=== PATIENT | male | born 1945 | race Hispanic/Latino ===

== ENCOUNTER 2019-01-08 08:20 | Day surgery (SDC) | payer OTHER ==
[2019-01-06 15:54] VITALS: BP 128/81
[2019-01-06 15:58] LABS: BASOPHILS % (AUTO) 0.4 % (0.0-5.0); EOSINOPHILS % (AUTO) 2.4 % (0.0-8.0); HEMATOCRIT 42.2 % (42-54); LYMPHOCYTES % (AUTO) 17.4 % (21.0-51.0); MEAN CORPUSCULAR HGB CONC 34.6 g/dL (32.0-36.0); MEAN CORPUSCULAR VOLUME 104.2 fL (79-99); MONOCYTES % (AUTO) 9.7 % (3.0-13.0); NEUTROPHILS % (AUTO) 70.1 % (40.0-77.0); NUCLEATED RED BLOOD CELLS 0.1 % (0.0-0.19); PLATELET COUNT (AUTO) 180 K/uL (130-400); RED BLOOD CELL COUNT(AUTO) 4.05 MIL/uL (4.50-6.20); RED CELL DISTRIBUTION WIDTH 13.9 % (11.0-15.5)
[2019-01-06 16:07] LABS: CREATININE 1.1 mg/dL (0.5-1.5)
[2019-01-08] VITALS (13 sets, daily range): BP systolic 120–140; BP diastolic 72–85
[2019-01-08] MEDS: CEFTRIAXONE SODIUM 1 GM IVP SCH ×2 (06:00→11:20)
[~2019-01-08 08:20] MED LIST: AMLO10TA7 PO; ESOM40CA PO; GLUC-148 PO; METO-408 PO; UBID300C PO; VITA1CAP85 PO
[2019-01-08] MEDS ORDERED: LACTATED RINGERS 1000ML 1,000 ML IV ONE (09:57)
[2019-01-08] MEDS ORDERED: PROPOFOL 10 MG/ML 20ML VIAL IV ONE (11:08)
[2019-01-08] MEDS ORDERED: ROCURONIUM 10MG/1ML SYR 10 MG/ML ML ONE (11:08)
[2019-01-08] MEDS ORDERED: LIDOCAINE PF 2% 5ML ABBOJECT ONE (11:08)
[2019-01-08] MEDS ORDERED: FENTANYL CITRATE PF 50 MCG/1 ML 2ML VIAL ONE (11:09)
[2019-01-08] MEDS ORDERED: ONDANSETRON HCL 4 MG/2 ML VIAL ONE (11:13)
[2019-01-08] MEDS ORDERED: DEXAMETHASONE SOD PHOSPHATE 10MG/ML 1ML VIAL ONE (11:13)
[2019-01-08] MEDS ORDERED: EPHEDRINE SULFATE 50 MG/ML AMPULE ONE (11:26)
[2019-01-08] MEDS ORDERED: NEOSTIGMINE 5MG/5ML SYR IV ONE (11:48)
[2019-01-08] MEDS ORDERED: GLYCOPYRROLATE 1 MG/5 ML SYRINGE ONE (11:48)
--- NOTE | 2019-01-08 13:05 | NUR ---
RECEIVE PT RECEIVED FROM PACU VIA STRETCHER AWAKE ALERT ORIENTED X3. STABLE. NO COMPLAINTS MADE. GUO CATH 16 FR DRAINING CLEAR PINK TINGED URINE, ABOUT 1000 ML, SECURED WITH LEG STRAP. CALL BILLINGS WITHIN REACH, WILL CALL FOR TO COME IN TO ROOM. WILL CONTINUE TO MONITOR PT.
[2019-01-08] MEDS ORDERED: PHENAZOPYRIDINE HCL 200 MG TABLET ONE (13:17)
--- NOTE | 2019-01-08 13:55 | NUR ---
DISCHARGE PT DISCHARGED VIA WHEELCHAIR WITH . PT STABLE. NO COMPLAINTS MADE. TOLERATED ORAL FLUIDS WELL. URINE BAG CHANGED TO LEG BAG. DRAINING CLEAR YELLOW URINE. GUO CATHETER HOME CARE AND DEMONSTRATION GIVEN TO , VERBALIZED UNDERSTANDING. DISCHARGE INSTRUCTIONS GIVEN TO WELL, VERBALIZED UNDERSTANDING.
== END 2019-01-08 13:55 | disposition home or self-care (01) ==
LOC: DAH 08:20
PROVIDERS: ATTEND Urology
DX: C67.2 Malignant neoplasm of lateral wall of bladder (principal); N32.89 Other specified disorders of bladder; I10 Essential (primary) hypertension; K21.9 Gastro-esophageal reflux disease without esophagitis; Z91.030 Bee allergy status; Z88.8 Allergy status to other drugs, medicaments and biological substances; Z79.899 Other long term (current) drug therapy
CPT/HCPCS: 36415; 52234; 80048; 85025; 93005; A4344; A4358; A4510; A4600; J0696; J1100; J2001; J2405; J2704; J2710; J3010; J3490 ×2; J7030; J7120

== ENCOUNTER → 2021-01-02 | Outpatient (CLI) | payer OTHER ==
[~2021-01-02] MED LIST changes: +AMLO-258 PO; -AMLO10TA7 PO
== END | disposition home or self-care (01) ==
LOC: SHCH 10:24
PROVIDERS: ATTEND Internal Medicine Cardiovascular Disease
DX: I73.9 Peripheral vascular disease, unspecified (principal)
CPT/HCPCS: 93925